=== PATIENT | female | born 1960 | race Caucasian/White ===

== ENCOUNTER 2024-04-21 17:40 | Emergency (ER) | payer SELFPAY ==
[~2024-04-21] VITALS: Ht 152.4 cm; Wt 115.0 kg
[2024-04-21 17:48] VITALS: O2SAT 99
[2024-04-21] MEDS: ACETAMINOPHEN 325MG TABLET PO ONE (20:05)
[2024-04-21 21:00] VITALS: BP 109/70; PULSE 68; RESP 18; TEMP 37.00296; O2SAT 98
[2024-04-21] MEDS ORDERED: LIDO700A30 TP (21:01)
[2024-04-21] MEDS ORDERED: METH-653 MT (21:01)
== END 2024-04-21 21:33 | disposition home or self-care (01) ==
LOC: ER 17:40
DX: M25.511 Pain in right shoulder (principal); F32.9 Major depressive disorder, single episode, unspecified; G40.909 Epilepsy, unspecified, not intractable, without status epilepticus; Z88.6 Allergy status to analgesic agent
CPT/HCPCS: 71045; 73030; 99284